=== PATIENT | female | born 1985 | race Caucasian/White ===

== ENCOUNTER 2024-04-09 18:44 | Emergency (ER) | payer SELFPAY ==
[2024-04-09 18:46] VITALS: BP 135/80
[2024-04-09 21:42] VITALS: BP 123/94
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
[2024-04-09 22:53] LABS: HCG, Urine Qualitative Screen Negative
[2024-04-10 01:30] VITALS: BP 134/99
[2024-04-10] MEDS: MOTRIN 400 MG PO (02:03)
[2024-04-10 02:05] VITALS: BP 134/99
== END 2024-04-10 02:05 | disposition home or self-care (01) ==
LOC: EMR 18:44
PROVIDERS: Nurse Practitioner; EMERGENCY PHYSICIAN Emergency Medicine; FAMILY PHYSICIAN Nurse Practitioner Adult Health
DX: S06.0X0A Concussion without loss of consciousness, initial encounter (principal); V43.52XA Car driver injured in collision with other type car in traffic accident, initial encounter
CPT/HCPCS: 99285; 70450; 70486; 71046; 72125; 73080; 81025